=== PATIENT | male | born 1985 | race African-American/Black ===

== ENCOUNTER 2016-06-25 06:54 | Emergency (ER) | payer SELFPAY ==
[~2016-06-25] VITALS: Ht 182.9 cm; Wt 80.0 kg
[~2016-06-25 06:54] MED LIST: LORTA5 PO
[2016-06-25 07:05] VITALS: BP 131/86; PULSE 92; RESP 16; TEMP 98.7; O2SAT 98
[2016-06-25] MEDS ORDERED: NAPR220T95 PO (07:53)
--- NOTE | 2016-06-25 08:03 | PD ---
HPI Chief Complaint: ENT Complaint Time Seen by Provider: 08:03 Travel History International Travel<30 days: No Contact w/Intl Traveler<30days: No Traveled to known affect area: No History of Present Illness HPI 30-year-old male presents to the emergency Department with complaint of sore throat 3 days. Reports subjective fever. Reports continued spitting because of difficulty swallowing. Says he can swallow his own saliva but it is extremely painful and difficult. Reports feeling like the right side of his throat is more swollen than the left. Denies nasal congestion, ear pain, cough. Denies nausea, vomiting, abdominal pain. Has tried taking Tylenol and [place] with no relief of symptoms. No one else with similar symptoms. No known allergies. No other modifying factors or associated signs and symptoms. PFSH Past Medical History Diminished Hearing: No Immunizations Current: Yes Social History Alcohol Use: Yes (SOCIAL) Tobacco Use: Yes (CIGAR DAILY) Substance Use: No Allergies-Medications (Allergen,Severity, Reaction): Coded Allergies: No Known Allergies (Verified , 06/25/16) Reported Meds & Prescriptions Reported Meds & Active Scripts Active Reported Aleve (Naproxen Sodium) 220 Mg Tab 220 Mg PO BID PRN Review of Systems Except as stated in HPI: all other systems reviewed are Neg Physical Exam Narrative GENERAL: Well-nourished, well-developed patient, in no acute distress; low grade fever 99.1; appears like he doesn't feel well SKIN: Warm and dry. No rash. HEAD: Atraumatic. Normocephalic. EYES: Pupils equal and round at 3 mm with brisk reaction. No scleral icterus. No injection or drainage. PERRLA. ENT: Mucosa pink and dry. Pharynx with erythema and edema; more edematous with tonsillar deviation on the right. With Uvular edema. No uvular, palatal deviation; with Right-sided tonsillar deviation. Airway patent. Voice is hoarse. Spitting in basin at bedside. Foul-smelling breath on exam. EARS: Bilateral pinnae and external canals appear within normal limits. Bilateral tympanic membranes without erythema, dullness or perforation.. NECK: Trachea midline. Anterior cervical lymphadenopathy and tenderness. CARDIOVASCULAR: Regular rate and rhythm. No murmur appreciated. RESPIRATORY: No accessory muscle use. Clear to auscultation. Breath sounds equal bilaterally. GASTROINTESTINAL: Abdomen soft, non-tender, nondistended. Hepatic and splenic margins not palpable. Bowel sounds are active 4 quadrants. MUSCULOSKELETAL: No obvious deformities. No clubbing. No cyanosis. No edema. NEUROLOGICAL: Awake and alert. Oriented 3. No obvious cranial nerve deficits. Motor grossly within normal limits. Normal speech. Moves all extremities. PSYCHIATRIC: Appropriate mood and affect; insight and judgment normal. Data Data Last Documented VS Vital Signs Date Time Temp Pulse Resp B/P Pulse Ox O2 Delivery O2 Flow Rate FiO2 06/25/16 07:05 98.7 92 16 131/86 98 Room Air Orders Group A Rapid Strep Screen (06/25/16 08:03) Ketorolac Inj (Toradol Inj) (06/25/16 08:15) Methylprednisolone So Succ Inj (Solumedr (06/25/16 08:15) Influenzae A/B Antigen (06/25/16 08:03) Ct Soft Tiss Neck W Iv Cont (06/25/16 ) Piperacil-Tazo 2.25 Gm Premix (Zosyn 2.2 (06/25/16 08:45) Basic Metabolic Panel (Bmp) (06/25/16 08:45) Complete Blood Count With Diff (06/25/16 08:45) Iv Access Insert/Monitor (06/25/16 08:45) Ecg Monitoring (06/25/16 08:45) Oximetry (06/25/16 08:45) Sodium Chloride 0.9% Flush (Ns Flush) (06/25/16 08:45) Sodium Chlor 0.9% 1000 Ml Inj (Ns 1000 M (06/25/16 08:48) MDM Medical Decision Making Medical Screen Exam Complete: Yes Emergency Medical Condition: Yes Medical Record Reviewed: Yes Differential Diagnosis Strep pharyngitis, peritonsillar abscess, uvulitis, mono Narrative Course 30-year-old male with sore throat 3 days. Patient does not appear like he feels well. He was warm to touch and I rechecked his temperature and he has low -grade fever of 99.1. He does have right-sided peritonsillar deviation on physical exam. He is spitting in a basin at the bedside. I feel it necessary to rule out peritonsillar abscess with the physical findings and patient complaints. I spoke with Dr. Townsend and he agreed with my care of plan. Rapid strep ordered. CT soft tissue neck ordered. Solu-Medrol and Toradol ordered. CBC, BMP, Zosyn, 1 L normal saline ordered. 0846: Treatment initiated in [facility] [facility]. Care of patient will be transferred to Dr. Townsend. See his note for final disposition. Patricia Linder Jun 25, 2016 08:03
[2016-06-25] MEDS ORDERED: KETOROLAC TROMETHAMINE 60 MG/2 ML (IM) VIAL IM ONE (08:15)
[2016-06-25] MEDS ORDERED: methylPREDNISolone SOD SUCC 125 MG/2 ML VIAL IM ONE (08:15)
[2016-06-25] MEDS ORDERED: PIPERACIL-TAZO 2.25 GM PREMIX 50 ML IV ONE ×2 (08:45→11:15)
[2016-06-25] MEDS ORDERED: SODIUM CHLORIDE 0.9% FLUSH 5 ML FLUSH IVF PRN (08:45)
[2016-06-25] MEDS ORDERED: SODIUM CHLOR 0.9% 1000 ML INJ 1,000 ML IV SCH (08:48)
--- NOTE | 2016-06-25 09:03 | PD ---
Data Data Last Documented VS Vital Signs Date Time Temp Pulse Resp B/P Pulse Ox O2 Delivery O2 Flow Rate FiO2 06/25/16 11:03 94 20 130/78 97 06/25/16 10:20 Room Air 06/25/16 10:06 98.4 Orders Group A Rapid Strep Screen (06/25/16 08:03) Ketorolac Inj (Toradol Inj) (06/25/16 08:15) Methylprednisolone So Succ Inj (Solumedr (06/25/16 08:15) Influenzae A/B Antigen (06/25/16 08:03) Ct Soft Tiss Neck W Iv Cont (06/25/16 ) Piperacil-Tazo 2.25 Gm Premix (Zosyn 2.2 (06/25/16 08:45) Basic Metabolic Panel (Bmp) (06/25/16 08:45) Complete Blood Count With Diff (06/25/16 08:45) Iv Access Insert/Monitor (06/25/16 08:45) Ecg Monitoring (06/25/16 08:45) Oximetry (06/25/16 08:45) Sodium Chloride 0.9% Flush (Ns Flush) (06/25/16 08:45) Sodium Chlor 0.9% 1000 Ml Inj (Ns 1000 M (06/25/16 08:48) Strep Culture (Group A) (06/25/16 08:15) Ketorolac Inj (Toradol Inj) (06/25/16 09:15) Ampicillin-Sulbactam Inj (Unasyn Inj) (06/25/16 10:15) Piperacil-Tazo 2.25 Gm Premix (Zosyn 2.2 (06/25/16 11:15) Iohexol 350 Inj (Omnipaque 350 Inj) (06/25/16 11:19) Labs Laboratory Tests Test 06/25/16 09:30 White Blood Count 13.7 TH/MM3 Red Blood Count 4.98 MIL/MM3 Hemoglobin 13.3 GM/DL Hematocrit 40.6 % Mean Corpuscular Volume 81.4 FL Mean Corpuscular Hemoglobin 26.7 PG Mean Corpuscular Hemoglobin 32.8 % Concent Red Cell Distribution Width 14.9 % Platelet Count 104 TH/MM3 Mean Platelet Volume 9.9 FL Neutrophils (%) (Auto) 73.7 % Lymphocytes (%) (Auto) 12.9 % Monocytes (%) (Auto) 13.1 % Eosinophils (%) (Auto) 0.0 % Basophils (%) (Auto) 0.3 % Neutrophils # (Auto) 10.1 TH/MM3 Lymphocytes # (Auto) 1.8 TH/MM3 Monocytes # (Auto) 1.8 TH/MM3 Eosinophils # (Auto) 0.0 TH/MM3 Basophils # (Auto) 0.0 TH/MM3 CBC Comment DIFF FINAL Differential Comment Sodium Level 137 MEQ/L Potassium Level 4.0 MEQ/L Chloride Level 101 MEQ/L Carbon Dioxide Level 26.3 MEQ/L Anion Gap 10 MEQ/L Blood Urea Nitrogen 14 MG/DL Creatinine 1.07 MG/DL Estimat Glomerular Filtration 97 ML/MIN Rate Random Glucose 101 MG/DL Calcium Level 9.0 MG/DL [facility] Medical Record Reviewed: Yes Supervised Visit with BRET: Yes Narrative Course Patient care assumed by me from Nano SNYDER. Patient seen and examined by me and appears to have some swelling over the right soft palate consistent with peritonsillar abscess. CAT scan pending, will be given Zosyn in the emergency department. Pain medicine is been ordered. Patient CT ordered by Nano Linder. Patient becoming inpatient and wants to leave. CT exam has not been read yet but reviewed by me and appears to show uncomplicated peritonsilar abscess. D/W patient that he should consider admission for ENT consultation and drainage. He refuses states he has things to do and needs to go. Discussed if he wishes to go he should have a drainage by me and go on antibiotics. After discussion of r/b/c/a of surgical drainage vs ER drainage, patient states he would rather have OR drainage. However, he states he has things to do and will come back. Discussed with him that he is making a bad decision. Informed him of consequences of leaving without drainage including airway compromise, spread to carotid sheath, chest infection , and permanent disability. He verbalized understanding and still refuses intervention. Prescribed augmentin and urged him to return to the ER after his business is concluded. Signed formal AMA papers, is protecting his airway. Diagnosis Primary Impression: Peritonsillar abscess Med/Other Pt SpecificInfo: Prescription(s) given Scripts Amoxicillin-Clavulanate (Augmentin)875-125 mg [id number] Mg PO BID 7 Days Ref 0 not for use in CrCl <30 ml/min. Prov:Morgan Townsend MD 06/25/16 Disposition: 07 AGAINST MEDICAL ADVICE Condition: Stable Morgan Townsend MD Jun 25, 2016 09:03
[2016-06-25] MEDS ORDERED: KETOROLAC TROMETHAMINE 30 MG/ML (IVP) VIAL IV PUSH ONE (09:15)
[2016-06-25 09:49] LABS: AUTOMATED NEUTROPHIL # 10.1 TH/MM3 (1.8-7.7); BASOPHIL % 0.3 % (0.0-2.0); HEMATOCRIT 40.6 % (39.0-51.0); HEMO FLAGS DIFF FINAL; LYMPH % 12.9 % (9.0-44.0); LYMPHOCYTE # 1.8 TH/MM3 (1.0-4.8); MEAN CELL VOLUME 81.4 FL (80.0-100.0); MEAN CORPUSCULAR HEMOGLOBIN 26.7 PG (27.0-34.0); MEAN CORPUSCULAR HGB CONC 32.8 % (32.0-36.0); MONO % 13.1 % (0.0-8.0); NEUT % 73.7 % (16.0-70.0); PLATELET COUNT 104 TH/MM3 (150-450); RED BLOOD COUNT 4.98 MIL/MM3 (4.50-5.90); RED CELL DISTRIBUTION WIDTH 14.9 % (11.6-17.2); WHITE BLOOD COUNT 13.7 TH/MM3 (4.0-11.0)
[2016-06-25 10:06] VITALS: BP 125/79; PULSE 70; RESP 16; TEMP 98.4; O2SAT 100
[2016-06-25] MEDS ORDERED: AMPICILLIN-SULBACTAM INJ 1,500 MG in SODIUM CHLORIDE 0.9% INJ 100 ML IV ONE (10:15)
[2016-06-25 10:44] LABS: BICARBONATE 26.3 MEQ/L (21.0-32.0)
[2016-06-25 11:03] VITALS: BP 130/78; PULSE 94; RESP 20; O2SAT 97
[2016-06-25] MEDS ORDERED: IOHEXOL 350 MG/ML 10 ML VIAL (for RAD DIAG) IV ONE (11:19)
[2016-06-25] MEDS ORDERED: AUGM875T PO (12:15)
--- NOTE | 2016-06-25 12:41 | RADRPT ---
EXAM DATE/TIME: 06/25/2016 11:00 [facility] COMPARISON: No previous studies available for comparison. INDICATIONS : Sore throat for three days. IV CONTRAST: 60 cc Omnipaque 350 (iohexol) IV RADIATION DOSE: 15.11 CTDIvol (mGy) MEDICAL HISTORY : None SURGICAL HISTORY : None. ENCOUNTER: Initial ACUITY: 3 days PAIN SCALE: 8/10 LOCATION: neck TECHNIQUE: Volumetric scanning of the neck was performed. Using automated exposure control and adjustment of th e mA and/or kV according to patient size, radiation dose was kept as low as reasonably achievable to obtain optimal diagnostic quality images. FINDINGS: There is soft tissue swelling at the lateral aspects of the oropharynx bilaterally being more promine nt on the right. There is a 2.2 cm area of low density seen in the right lateral oropharynx in the expected location o f the tonsils. There is some surrounding low density seen in the soft tissues in this region. There are prominent l ymph nodes identified in the posterior triangle deep to the sternocleidomastoid muscle being more prominent on t he right than the left. The glottic structures appear intact. The hypopharynx is normal. Supraglottic portion of the trachea is normal. Thyroid gland is normal. CONCLUSION: Swelling identified in the tonsils bilaterally being more so on the right. This includes a 2.2 cm fo rita fluid collection likely representing an abscess on the right tonsil. Ilya Jeffers MD on June 25, 2016 at 12:26 Board Certified Radiologist. This report was verified electronically.
== END 2016-06-25 12:28 | disposition left against medical advice (07) ==
LOC: NEPB 06:54 → NEPC 12:28
DX: J36 Peritonsillar abscess (principal); Z72.0 Tobacco use
CPT/HCPCS: 70491; 80048; 85025; 87081; 87804; 87880; 96372; 96374; 99284; J1885; J2543; J2930; J7030; Q9967

== ENCOUNTER 2016-06-27 00:19 | Emergency (ER) | payer SELFPAY ==
[~2016-06-27] VITALS: Ht 182.9 cm; Wt 75.0 kg
[~2016-06-27 00:19] MED LIST changes: +AUGM875T PO; -LORTA5 PO; +NAPR220T95 PO
[2016-06-27 00:20] VITALS: BP 119/73; PULSE 68; RESP 16; TEMP 98.4; O2SAT 99
[2016-06-27] MEDS ORDERED: SODIUM CHLORIDE 0.9% FLUSH 5 ML FLUSH IVF PRN (02:15)
[2016-06-27] MEDS ORDERED: AMPICILLIN-SULBACTAM INJ 3 GM VIAL IM ONE (02:15)
--- NOTE | 2016-06-27 02:23 | PD ---
HPI Chief Complaint: ENT Complaint Time Seen by Provider: 01:57 Travel History International Travel<30 days: No Contact w/Intl Traveler<30days: No Traveled to known affect area: No History of Present Illness HPI Patient is a 30-year-old male who returns to emergency room for admission for drainage of peritonsillar abscess Patient reports that he was seen in the emergency room on June 25, reports that he had been having increased sore throat with fevers and chills for 5 days. Patient reports that he was diagnosed with a peritonsillar abscess and reports that he was told that he would have to have this abscess drained. Patient was given the option of having the abscess drained by the ER physician versus having the abscess drained by ENT. Patient reports that he was not comfortable having this abscess drained in the ER and could not stay for admission to the hospital. Patient reports that he left against medical reimbursement specialist with a prescription for Augmentin. Patient did take his doses of Augmentin today. Patient reports that he had to daycare a few problems at home, he is here for admission to the hospital. [facility] Past Medical History Medical History: Denies Significant Hx Diminished Hearing: No Immunizations Current: Yes Influenza Vaccination: No Past Surgical History Surgical History: No Previous Surgery Social History Alcohol Use: Yes (SOCIAL) Tobacco Use: Yes (CIGAR DAILY) Substance Use: No Allergies-Medications (Allergen,Severity, Reaction): Coded Allergies: No Known Allergies (Verified , 06/27/16) Reported Meds & Prescriptions Reported Meds & Active Scripts Active Augmentin (Amoxicillin-Clavulanate) 875-125 mg Tab 875 Mg PO BID 7 Days not for use in CrCl <30 ml/min. Reported Aleve (Naproxen Sodium) 220 Mg Tab 220 Mg PO BID PRN Review of Systems General / Constitutional: No: Fever Eyes: No: Visual changes HENT: Positive: Sore Throat, No: Headaches Cardiovascular: No: Chest Pain or Discomfort Respiratory: No: Shortness of Breath Gastrointestinal: No: Abdominal Pain Genitourinary: No: Dysuria Musculoskeletal: No: Pain Skin: No Rash Neurologic: No: Weakness Psychiatric: No: Depression Endocrine: No: Polydipsia Hematologic/Lymphatic: No: Easy Bruising Physical Exam Narrative GENERAL: No acute distress, nontoxic SKIN: Warm and dry. HEAD: Atraumatic. Normocephalic. EYES: Pupils equal and round. No scleral icterus. No injection or drainage. ENT: No nasal bleeding or discharge. Mucous membranes pink and moist. Patient with swollen tonsils b/l worst right than left NECK: Trachea midline. No JVD. CARDIOVASCULAR: Regular rate and rhythm. No murmur appreciated. RESPIRATORY: No accessory muscle use. Clear to auscultation. Breath sounds equal bilaterally. GASTROINTESTINAL: Abdomen soft, non-tender, nondistended. Hepatic and splenic margins not palpable. MUSCULOSKELETAL: No obvious deformities. No clubbing. No cyanosis. No edema. NEUROLOGICAL: Awake and alert. No obvious cranial nerve deficits. Motor grossly within normal limits. Normal speech. PSYCHIATRIC: Appropriate mood and affect; insight and judgment normal. Data Data Last Documented VS Vital Signs Date Time Temp Pulse Resp B/P Pulse Ox O2 Delivery O2 Flow Rate FiO2 06/27/16 02:36 98.4 82 18 101/56 100 06/27/16 00:20 Room Air Orders Basic Metabolic Panel (Bmp) (06/27/16 02:06) Complete Blood Count With Diff (06/27/16 02:06) Iv Access Insert/Monitor (06/27/16 02:06) Sodium Chloride 0.9% Flush (Ns Flush) (06/27/16 02:15) Ampicillin-Sulbactam Inj (Unasyn Inj) (06/27/16 02:15) Labs Laboratory Tests Test 06/27/16 01:54 White Blood Count 11.3 TH/MM3 Red Blood Count 4.67 MIL/MM3 Hemoglobin 12.1 GM/DL Hematocrit 37.5 % Mean Corpuscular Volume 80.3 FL Mean Corpuscular Hemoglobin 26.0 PG Mean Corpuscular Hemoglobin 32.4 % Concent Red Cell Distribution Width 15.3 % Platelet Count 131 TH/MM3 Mean Platelet Volume 10.8 FL Neutrophils (%) (Auto) 70.0 % Lymphocytes (%) (Auto) 20.8 % Monocytes (%) (Auto) 8.6 % Eosinophils (%) (Auto) 0.2 % Basophils (%) (Auto) 0.4 % Neutrophils # (Auto) 7.9 TH/MM3 Lymphocytes # (Auto) 2.3 TH/MM3 Monocytes # (Auto) 1.0 TH/MM3 Eosinophils # (Auto) 0.0 TH/MM3 Basophils # (Auto) 0.0 TH/MM3 CBC Comment DIFF FINAL Differential Comment Sodium Level 143 MEQ/L Potassium Level 4.2 MEQ/L Chloride Level 105 MEQ/L Carbon Dioxide Level 31.8 MEQ/L Anion Gap 6 MEQ/L Blood Urea Nitrogen 18 MG/DL Creatinine 0.90 MG/DL Estimat Glomerular Filtration 119 ML/MIN Rate Random Glucose 90 MG/DL Calcium Level 8.3 MG/DL MDM Medical Decision Making Medical Screen Exam Complete: Yes Emergency Medical Condition: Yes Interpretation(s) Vital Signs Date Time Temp Pulse Resp B/P Pulse Ox O2 Delivery O2 Flow Rate FiO2 06/27/16 02:36 98.4 82 18 101/56 100 06/27/16 00:20 98.4 68 16 119/73 99 Room Air Differential Diagnosis Peritonsillar abscess Narrative Course Patient is a 30-year-old male who returns to emergency room for admission to hospital for drainage of his peritonsillar abscess. Patient was seen in the emergency room on June 25, 2016 and had a CAT scan of his neck showing a 2.2 cm focal fluid collection in the right tonsil. Patient reports that he left AMA on the , reports that he is ready for admission and for ENT drainage of this peritonsillar abscess. Patient adamantly refuses drainage of abscess by myself, reports that he was offered admission and ENT drainage and requests this at this time. case reviewed with Dr Sheehan with ENT - patient does not need his peritonsillar abscess to be drained, patient can be treated for antibiotics, reports that they do not drain peritonsillar abscesses anymore Discussed with patient that his abscess, patient drained at this time, patient is refusing abscess drained by myself. Patient is able to drink, eat and take antibiotics. Patient was given the option of being admitted to the hospital for IV antibiotics versus being discharged home with oral antibiotics. Patient reports that he has been tolerating oral antibiotics at this time and does not want to be admitted to the hospital. Signs and symptoms of when to return to the emergency room was reviewed in detail with patient. We'll have patient follow with ENT as outpatient, patient understands need to complete full course of antibiotics. Diagnosis Primary Impression: Peritonsillar abscess Referrals: Tyrone Sheehan MD Patient Instructions: General Instructions Additional Instructions: Please follow-up with ENT as outpatient Please take antibiotics as prescribed Return to emergency room if symptoms progress or worsen or if you have any difficultly swallowing Disposition: 01 DISCHARGE HOME Condition: Stable Bettye Armstrong DO Jun 27, 2016 02:23
[2016-06-27 02:36] VITALS: BP 101/56; PULSE 82; RESP 18; TEMP 98.4; O2SAT 100
[2016-06-27 02:45] LABS: AUTOMATED NEUTROPHIL # 7.9 TH/MM3 (1.8-7.7); BASOPHIL % 0.4 % (0.0-2.0); EOSINOPHIL % 0.2 % (0.0-4.0); HEMATOCRIT 37.5 % (39.0-51.0); HEMO FLAGS DIFF FINAL; LYMPH % 20.8 % (9.0-44.0); LYMPHOCYTE # 2.3 TH/MM3 (1.0-4.8); MEAN CELL VOLUME 80.3 FL (80.0-100.0); MEAN CORPUSCULAR HGB CONC 32.4 % (32.0-36.0); MONO % 8.6 % (0.0-8.0); PLATELET COUNT 131 TH/MM3 (150-450); RED BLOOD COUNT 4.67 MIL/MM3 (4.50-5.90); RED CELL DISTRIBUTION WIDTH 15.3 % (11.6-17.2); WHITE BLOOD COUNT 11.3 TH/MM3 (4.0-11.0)
[2016-06-27 02:58] LABS: BICARBONATE 31.8 MEQ/L (21.0-32.0); POTASSIUM 4.2 MEQ/L (3.5-5.1)
[2016-06-27 05:18] VITALS: BP 102/54; PULSE 68; RESP 18; TEMP 98.5; O2SAT 100
== END 2016-06-27 06:17 | disposition home or self-care (01) ==
LOC: NEPC 00:19
DX: J36 Peritonsillar abscess (principal); Z72.0 Tobacco use
CPT/HCPCS: 80048; 85025; 96372; 99283; J0295